=== PATIENT | female | born 1970 | race Caucasian/White ===

== ENCOUNTER 2020-04-14 14:29 | Emergency (ER) | payer OTHER ==
[~2020-04-14] VITALS: Ht 170.2 cm; Wt 83.9 kg
[2020-04-14 14:54] VITALS: BP 109/72
--- NOTE | 2020-04-14 15:19 | ER.PDOC ---
General Chief Complaint: Requesting Medical Care Stated Complaint: FINGER INFECTION Time seen by MD: 15:11 Source: patient Exam Limitations: no limitations History of Present Illness Initial Comments Infection left index finger for past few weeks, expressed pus recently but has not taken oral antibiotics because he does not have a PCP. It resulted from a b ug bite, no injury and no fever or chills. Recent Injury: No Where: home Severity: moderate Exacerbated By: nothing Relieved By: nothing Quality: pain, swelling Past Medical History Medical History: no pertinent history Surgical History: no surgical history Family History Significant Family History: no pertinent family hx Social History Smoking: greater than 1 pack/day Alcohol Use: occassionally Drug Use: marijuana Review of Systems Constitutional: no symptoms reported EENTM: no symptoms reported Respiratory: no symptoms reported Cardiovascular: no symptoms reported Gastrointestinal: no symptoms reported Musculoskeletal: see HPI All Other Systems: Reviewed and Negative Physical Exam General Appearance: alert, no distress Upper Extremity: tenderness (distal left index finger with mild swelling. There is mild redness and erytherma) Vascular: no vascular compromise Neuro/Psych: sensation nml, motor nml Central Exam: oriented X3, CN's nml as tested, nml speech, nml cognition, nml mood/affect Neck/Back: nml inspection Respiratory: no resp distress, breath sounds nml CVS: reg rate & rhythm, heart sounds nml Abdomen: non-tender, no organomegaly, nml bowels sounds Comments Was not able to express significant pus from finger. ER DEPART Departure Time of Disposition: 15:17 Disposition: 01 HOME, SELF-CARE Impression: Primary Impression: Cellulitis of finger of left hand Condition: Stable Referrals: PCP,UNKNOWN (PCP) PRIMARY CARE PROVIDER Additional Instructions: Bactrim DS Ibuprofen F/U with your PCP in 5-7 days Return to ED if worsening or concerns Duration or Time Spent with Pa: 10 min MAHAMED BAILEY MD Apr 14, 2020 15:18
== END 2020-04-14 15:51 | disposition home or self-care (01) ==
LOC: ER 14:29
DX: L03.012 Cellulitis of left finger (principal); F17.210 Nicotine dependence, cigarettes, uncomplicated
CPT/HCPCS: 99283